=== PATIENT | female | born 1975 | race Caucasian/White ===

== ENCOUNTER 2017-12-15 13:56 | Emergency (ER) | payer OTHER ==
[~2017-12-15] VITALS: Ht 165.1 cm; Wt 141.5 kg
[~2017-12-15 13:56] MED LIST: ACET250 PO; ACYC400 PO; ALBU90I INH; ALBU90OI INH; ALBU90OI6; AMIT50; AMIT50 PO; AMIT75; AMIT75 PO; AMOX500 PO; ATEN25; ATEN50; AZIT250 PO; AZIT500 PO; Ativan0.5 MG PO; BENZ100A PO; BUSP10 PO; BUSP15 PO; BUTONI; CARB200; CARI350; CEFD300 PO; CHLO500 PO; CIPR500 PO; CLAR500 PO; CLIN300 PO; CODGUAEL PO; CONESTTC VAG; CRUTCH4 USE; CYCL10; CYCL10 PO; Cipro500 MG PO; Cleocin HCl150 MG PO; DIAZ10; DIAZ5 PO; DICY20; DIPH50 PO; DIVA500EC PO; DOXY100 PO; DULO30; ESTR2 PO; ESTRADIOL; ESTRADIOL 1MG; Esgic Tablet1 EACH PO; GABA300 PO; GABA600 PO; HIBICLENS120 ML EXT; HYDACE10B; HYDACE10B PO; HYDACE25S PR; HYDACE5 PO; HYDACE7.5 PO; HYDMOR2 PO; HYOS.125; IBUP600 PO; Kristalose20 GM PO; LISHYD2025 PO; LISI20 PO; LOPE2C PO; LORA.5; LORA.5 PO; LORA1 PO; MECL12.5 PO; MECL25 PO; MEDR2.5 PO; MEDR5 PO; METH10; METH40; METHADOSE; METO10; METO10 PO; METR250 PO; MUPI2TO TOP; Macrobid 100 M100 MG PO; NAPR500 PO; NAPR550 PO; Norco 5-325 Ta1 EACH PO; OLAN20; OMEP20ER PO; ONDA8 PO; OXYACE5T PO; OXYACE7.5T; OXYACE7.5T PO; OXYC10ER; OXYC5; PANT40; PARO20; PARO20 PO; PARO25 PO; PARO30 PO; PHENTERMINE 30 MG; PRAM.125; PRAM.5; PRAZ1; PRED20 PO; PROC10 PO; PRODEXEL PO; PROM25; PROM25 PO; PROM6.25SY PO; PROP80ER; Prednisone20 MG PO; Protonix40 MG PO; Pyridium200 MG PO; QVAR7.3 G1 IH; RISP4; RXALBOI INH; RXHYDACE PO; RXHYDGUAS PO; RXHYDMOR2 PO; RXNAPNA550 PO; RXONDA4ODT MM; RXOXYACE PO; RXPROM25 PO; RXPROM25S PR; RXTRAM50 PO; SPACE CHAMBER1 EACH MC; SUCR1 PO; SULI150 PO; SULTRIDS PO; SULTRISS PO; SUMA25 PO; TOPI25; TRAM50 PO; TRIM100S PR; Ultram50 MG PO; Vistaril50 MG PO; ZIPR40 PO; Zofran Odt4 MG SL; Zofran Odt8 MG SL; [UNRECOGNIZED DRUG - OTHER] PO
[2017-12-15] MEDS ORDERED: GABA800 PO (14:07)
[2017-12-15] MEDS ORDERED: BACL10 PO (14:08)
[2017-12-15] MEDS ORDERED: TOPI25 PO (14:08)
[2017-12-15] MEDS ORDERED: LOSA25 PO (14:45)
[2017-12-15] MEDS ORDERED: LASIX (14:46)
[2017-12-15] MEDS ORDERED: POTASSIUM CHLORIDE (14:47)
[2017-12-15 14:55] LABS: BASOPHILS ABSOLUTE AUTO 0.06 K/mm3 (0.00-0.23); BASOPHILS PERCENT AUTO 1 % (0-2); EOSINOPHILS ABSOLUTE AUTO 0.17 K/mm3 (0.00-0.68); EOSINOPHILS PERCENT AUTO 2 % (0-6); Hemoglobin 13.9 g/dL (11.5-16.0); IMMATURE GRAN ABSOLUTE AUTO 0.03 K/mm3 (0.00-0.10); IMMATURE GRAN PERCENT AUTO 0 % (0-1); LYMPHOCYTES ABSOLUTE AUTO 3.19 K/mm3 (0.84-5.20); LYMPHOCYTES PERCENT AUTO 32 % (21-46); MONOCYTES ABSOLUTE AUTO 0.71 K/mm3 (0.16-1.47); MONOCYTES PERCENT AUTO 7 % (4-13); Mean Corpuscular HGB 29.5 pg (26.0-34.0); Mean Corpuscular HGB Conc 33.9 g/dL (31.5-36.5); Mean Corpuscular Volume 87 fL (80-100); Mean Platelet Volume 10.1 fL (9.1-12.4); NEUTROPHILS ABSOLUTE AUTO 5.71 K/mm3 (1.96-9.15); NEUTROPHILS PERCENT AUTO 58 % (41-73); Platelet Count 304 K/mm3 (150-400); RDW Coefficient Variation 12.9 % (11.7-14.2); RDW Standard Deviation 40.7 fL (35.1-46.3); Red Blood Cell Count 4.71 M/mm3 (3.80-5.20); White Blood Cell Count 9.87 K/mm3 (4.00-11.30)
[2017-12-15 15:10] LABS: Alanine Aminotransfer (ALT/SGP 26 U/L (12-78); Albumin, Blood 3.9 g/dL (3.4-5.0); Albumin/Globulin Ratio 1.1 (0.8-1.8); Alk Phos 86 U/L (50-136); Anion Gap 5 mmol/L (6-16); Aspartate Aminotrans (AST/SGOT 21 U/L (12-37); Bilirubin, Total 0.4 mg/dL (0.1-1.0); Blood Urea Nitrogen 15 mg/dL (8-24); Bun/Creatinine Ratio 18.2 (12.0-20.0); CO2, Blood 26 mmol/L (21-32); Calcium, Blood 9.5 mg/dL (8.5-10.1); Chloride, Blood 108 mmol/L (98-108); Creatinine, Blood 0.82 mg/dL (0.40-1.00); Globulin, Blood 3.4 g/dL (2.2-4.0); Glomerular Filtration Rate >60 (60-); Glucose, Blood 95 mg/dL (70-99); Potassium, Blood 4.2 mmol/L (3.5-5.5); Sodium, Blood 139 mmol/L (136-145); Total Protein, Blood 7.3 g/dL (6.4-8.2); Troponin I <0.015 ng/mL (0.000-0.040)
[2017-12-15 15:13] LABS: Free Thyroxine 0.98 ng/dL (0.70-1.60); Magnesium, Blood 1.9 mg/dL (1.6-2.4)
[2017-12-15 15:17] LABS: Thyroid Stimulating Hormone 1.08 uIU/mL (0.360-4.800)
== END 2017-12-15 17:02 | disposition home or self-care (01) ==
LOC: ER 13:56
PROVIDERS: Emergency Medicine
DX: R00.2 Palpitations (principal); G43.909 Migraine, unspecified, not intractable, without status migrainosus; Z88.0 Allergy status to penicillin; Z88.6 Allergy status to analgesic agent; Z88.2 Allergy status to sulfonamides; Z88.8 Allergy status to other drugs, medicaments and biological substances; Z88.1 Allergy status to other antibiotic agents
CPT/HCPCS: 36415; 71046; 80053; 83735; 84439; 84443; 84484; 85025; 93005; 93010; 96374; 96375; 99283; J1100; J1200; J2405; J2550

== ENCOUNTER 2018-10-22 12:49 | Emergency (ER) | payer OTHER ==
[~2018-10-22] VITALS: Ht 165.1 cm; Wt 104.3 kg
[~2018-10-22 12:49] MED LIST changes: +ATEN25 PO; +ATEN50 PO; +BACL10 PO; +BUTALB-ACETAMI1 EAC2 PO; +FURO20 PO; +GABA800 PO; +LASIX; +LOSA25 PO; +POTASSIUM CHLORIDE; +Paxil40 MG; +TOPI25 PO; +TRAZ50 PO; +VARE1 PO; +Verotin-Gr Cap1 EACH PO; +Zantac150 MG PO
== END 2018-10-22 21:12 | disposition home or self-care (01) ==
LOC: ER 12:49
DX: R51 Headache (principal); Z88.0 Allergy status to penicillin; Z88.6 Allergy status to analgesic agent; Z88.2 Allergy status to sulfonamides; Z88.1 Allergy status to other antibiotic agents; Z79.899 Other long term (current) drug therapy; G43.909 Migraine, unspecified, not intractable, without status migrainosus; F31.9 Bipolar disorder, unspecified; F17.210 Nicotine dependence, cigarettes, uncomplicated
CPT/HCPCS: 96361; 96374; 96375; 99283-25; J1100; J1200; J2550; J7030

== ENCOUNTER 2019-02-05 11:10 | Emergency (ER) | payer OTHER ==
[~2019-02-05] VITALS: Ht 165.1 cm; Wt 142.9 kg
[2019-02-05 11:47] LABS: BASOPHILS ABSOLUTE AUTO 0.03 K/mm3 (0.00-0.23); BASOPHILS PERCENT AUTO 0 % (0-2); EOSINOPHILS ABSOLUTE AUTO 0.12 K/mm3 (0.00-0.68); EOSINOPHILS PERCENT AUTO 2 % (0-6); Hematocrit 39.8 % (33.0-51.0); Hemoglobin 13.2 g/dL (11.5-16.0); IMMATURE GRAN ABSOLUTE AUTO 0.02 K/mm3 (0.00-0.10); IMMATURE GRAN PERCENT AUTO 0 % (0-1); LYMPHOCYTES ABSOLUTE AUTO 1.95 K/mm3 (0.84-5.20); LYMPHOCYTES PERCENT AUTO 26 % (21-46); MONOCYTES ABSOLUTE AUTO 0.47 K/mm3 (0.16-1.47); MONOCYTES PERCENT AUTO 6 % (4-13); Mean Corpuscular HGB 30.6 pg (26.0-34.0); Mean Corpuscular HGB Conc 33.2 g/dL (31.5-36.5); Mean Corpuscular Volume 92 fL (80-100); Mean Platelet Volume 10.4 fL (9.1-12.4); NEUTROPHILS ABSOLUTE AUTO 4.93 K/mm3 (1.96-9.15); NEUTROPHILS PERCENT AUTO 66 % (41-73); Platelet Count 251 K/mm3 (150-400); RDW Coefficient Variation 12.5 % (11.7-14.2); Red Blood Cell Count 4.32 M/mm3 (3.80-5.20); White Blood Cell Count 7.52 K/mm3 (4.00-11.30)
[2019-02-05 12:12] LABS: Alanine Aminotransfer (ALT/SGP 29 U/L (12-78); Albumin, Blood 3.7 g/dL (3.4-5.0); Albumin/Globulin Ratio 1.2 (0.8-1.8); Alk Phos 79 U/L (50-136); Anion Gap 4 mmol/L (6-16); Aspartate Aminotrans (AST/SGOT 16 U/L (12-37); Bilirubin, Total 0.5 mg/dL (0.1-1.0); Blood Urea Nitrogen 14 mg/dL (8-24); Bun/Creatinine Ratio 20.3 (12.0-20.0); CO2, Blood 26 mmol/L (21-32); Chloride, Blood 111 mmol/L (98-108); Creatinine, Blood 0.69 mg/dL (0.40-1.00); Globulin, Blood 3.1 g/dL (2.2-4.0); Glomerular Filtration Rate >60 (60-); Glucose, Blood 103 mg/dL (70-99); Potassium, Blood 4.5 mmol/L (3.5-5.5); Sodium, Blood 141 mmol/L (136-145); Total Protein, Blood 6.8 g/dL (6.4-8.2)
[2019-02-05 12:13] LABS: Troponin I <0.015 ng/mL (0.000-0.040)
[2019-02-05] MEDS ORDERED: Robaxin-750750 MG PO (12:54)
[2019-02-05] MEDS ORDERED: Sudogest60 MG PO (12:54)
[2019-02-05] MEDS ORDERED: Cheratussin AC118 ML PO (12:54)
== END 2019-02-05 13:27 | disposition home or self-care (01) ==
LOC: ER 11:10
PROVIDERS: Emergency Medicine
DX: J06.9 Acute upper respiratory infection, unspecified (principal); G43.909 Migraine, unspecified, not intractable, without status migrainosus; F31.9 Bipolar disorder, unspecified; F17.200 Nicotine dependence, unspecified, uncomplicated; Z79.899 Other long term (current) drug therapy; Z88.0 Allergy status to penicillin; Z88.2 Allergy status to sulfonamides
CPT/HCPCS: 36415; 71046; 80053; 84484; 85025; 93005; 93010; 99284-25

== ENCOUNTER → 2019-02-18 | Outpatient (CLI) | payer OTHER ==
[~2019-02-18] MED LIST changes: +CODEINE-GUAIFE120 ML PO; +Cheratussin AC118 ML PO; +ONDA4ODT MM; +Robaxin-750750 MG PO; +Sudogest60 MG PO
== END | disposition home or self-care (01) ==
LOC: PLD 14:34 → LAB SHORT 14:34
DX: M61.58 Other ossification of muscle, other site (principal)
CPT/HCPCS: 88305

== ENCOUNTER 2019-03-06 20:13 | Emergency (ER) | payer OTHER ==
[~2019-03-06] VITALS: Ht 165.1 cm; Wt 142.0 kg
[~2019-03-06 20:13] MED LIST changes: -CODEINE-GUAIFE120 ML PO; -ONDA4ODT MM
== END 2019-03-06 23:07 | disposition home or self-care (01) ==
LOC: ER 20:13
DX: G43.909 Migraine, unspecified, not intractable, without status migrainosus (principal); F31.9 Bipolar disorder, unspecified; M79.7 Fibromyalgia; G89.29 Other chronic pain; R10.9 Unspecified abdominal pain; Z88.0 Allergy status to penicillin; Z88.2 Allergy status to sulfonamides; Z88.1 Allergy status to other antibiotic agents; Z88.8 Allergy status to other drugs, medicaments and biological substances; Z79.899 Other long term (current) drug therapy
CPT/HCPCS: 96361; 96374; 96375; 99283-25; J2405; J2550; J7030

== ENCOUNTER 2019-05-11 18:54 | Emergency (ER) | payer OTHER ==
[~2019-05-11] VITALS: Ht 165.1 cm; Wt 133.8 kg
[2019-05-11] MEDS ORDERED: CODEINE-GUAIFE120 ML PO (19:59)
[2019-05-11] MEDS ORDERED: ONDA4ODT MM (19:59)
[2019-05-11] MEDS ORDERED: CYCL10 PO (19:59)
== END 2019-05-11 20:02 | disposition home or self-care (01) ==
LOC: ER 18:54
DX: J06.9 Acute upper respiratory infection, unspecified (principal); G43.909 Migraine, unspecified, not intractable, without status migrainosus; F31.9 Bipolar disorder, unspecified; F17.210 Nicotine dependence, cigarettes, uncomplicated; Z88.0 Allergy status to penicillin; Z88.6 Allergy status to analgesic agent; Z88.1 Allergy status to other antibiotic agents; Z88.8 Allergy status to other drugs, medicaments and biological substances; Z88.5 Allergy status to narcotic agent; Z79.899 Other long term (current) drug therapy
CPT/HCPCS: 71046; 99283-25